=== PATIENT | male | born 1965 | race Caucasian/White ===

== ENCOUNTER 2023-04-17 23:41 | Emergency (ER) | payer BC, OTHER ==
[~2023-04-17] VITALS: Ht 170.2 cm; Wt 136.4 kg
[2023-04-18] MEDS ORDERED: IOHEXOL 350 MG/ML 100ML IJ ONE (00:03)
[2023-04-18 00:31] LABS: Basophils # (auto) 0.1 10 ^3/uL (0-0.2); Basophils % (auto) 0.9 % (0.0-2.0); Eosinophils # (auto) 0.2 10 ^3/uL (0-0.8); Hematocrit 42.5 % (41.0-53.0); Mean Corpuscular Hemoglobin 29.4 pg (28.0-32.0); Mean Corpuscular Hgb Conc. 33.1 g/dL (32.0-36.0); Mean Corpuscular Volume 88.8 fL (80.0-100.0); Monocytes # (auto) 0.6 10 ^3/uL (0-1.3); Monocytes % (auto) 8.2 % (0.0-12.0); Neutrophils # (auto) 4.7 10 ^3/uL (1.6-8.6); Neutrophils % (auto) 62.9 % (37.0-80.0); Nucleated Red Blood Cells % 0.1 %; Red Blood Cells 4.78 10^6/uL (4.5-5.90); Red Cell Distribution Width 14.7 % (11.8-14.3); White Blood Cell 7.5 10^3/uL (4.4-10.8)
[2023-04-18 00:34] VITALS: RESP 18; O2SAT 96
[2023-04-18 00:38] LABS: INR 1.13 (0.9-1.15); Partial Thromboplastin Time 26.4 SEC (24.5-34.5)
[2023-04-18 00:48] LABS: Albumin 3.4 g/dL (3.4-5.0); Calcium 9.1 mg/dL (8.5-10.1); Magnesium 2.3 mg/dL (1.6-2.6); Potassium 3.8 mmol/L (3.5-5.1)
[2023-04-18 01:03] LABS: Bilirubin, Total 0.4 mg/dL (0.2-1.0); Total Protein 7.4 g/dL (6.4-8.2)
[2023-04-18 03:55] LABS: Urine Bacteria FEW /hpf (None Seen); Urine Blood Negative /uL (Negative); Urine Mucus FEW (None Seen); Urine WBC 1 /hpf (0 - 3)
[2023-04-18 04:00] VITALS: BP 140/70; PULSE 72; RESP 12; TEMP 98; O2SAT 95
[2023-04-18 04:01] LABS: Urine Specific Gravity > 1.050 (1.001-1.035)
== END 2023-04-18 04:43 | disposition home or self-care (01) ==
LOC: ER 23:41 → EDBD 23:41 → ER 04-18 04:38
DX: R07.89 Other chest pain (principal); I48.91 Unspecified atrial fibrillation; I10 Essential (primary) hypertension; Z98.890 Other specified postprocedural states; Z86.73 Personal history of transient ischemic attack (TIA), and cerebral infarction without residual deficits
CPT/HCPCS: 36415; 70450; 71045; 71260; 74177; 80053; 81001; 83690; 83735; 83880; 84484; 85025; 85610; 85730; 93005; 99285; Q9967